=== PATIENT | female | born 1990 | race Caucasian/White ===

== ENCOUNTER 2017-03-06 12:02 | Emergency (ER) | payer OTHER ==
[2017-03-06 12:07] VITALS: O2SAT 100
[2017-03-06] MEDS ORDERED: Sodium Chloride 0.9% 1,000 ML IV ONE ×2 (12:33→12:35)
[2017-03-06] MEDS ORDERED: Sodium Chloride 0.9% 1,000 ML ONE (12:45)
[2017-03-06 13:00] LABS: RBC URINE 10 /hpf (0-3); URINE BACTERIA OCC (<OCC); URINE BILIRUBIN NEGATIVE (NEGATIVE); URINE BLOOD 2+ (NEGATIVE); URINE COLOR Yellow (YELLOW); URINE GLUCOSE (UA) NORMAL (Normal); URINE KETONE NEGATIVE (NEGATIVE); URINE LEUKOCYTE ESTERASE 3+ Leu/uL (Negative); URINE PROTEIN NEGATIVE (NEGATIVE); URINE UROBILINOGEN NORMAL mg/dL (0.2-1.0); WBC URINE 12 /hpf (0-5)
[2017-03-06 13:02] LABS: BASO # 0.1 K/uL (0.0-0.2); BASO % 0.7 % (0.0-2.0); EOS # 0.1 K/uL (0.0-0.7); EOS % 1.5 % (0.0-4.0); HEMATOCRIT 31.1 % (34.0-47.0); LYMPH # 1.5 K/uL (1.0-4.3); LYMPH % 19.5 % (20.0-40.0); MEAN CORPUSCULAR HEMOGLOBIN 28.1 pg (27.0-31.0); MEAN CORPUSCULAR HGB CONC 33.1 g/dL (33.0-37.0); MEAN PLATELET VOLUME 11.7 fL (7.2-11.7); MONO # 0.4 K/uL (0.0-0.8); MONO % 5.2 % (0.0-10.0); RED CELL DISTRIBUTION WIDTH 13.7 % (11.5-14.5); WHITE BLOOD COUNT 7.9 K/uL (4.8-10.8)
[2017-03-06 13:27] LABS: CHLORIDE 101 mmol/L (98-107)
[2017-03-06 13:28] LABS: POTASSIUM 3.8 mmol/L (3.6-5.2); SODIUM 135 mmol/L (132-148)
[2017-03-06 13:30] LABS: ALB/GLOB RATIO 1.1 (1.0-2.1); ALKALINE PHOSPHATASE 53 U/L (38-126); ALT/SGPT 29 U/L (9-52); AST/SGOT 33 U/L (14-36); BILIRUBIN,TOTAL 0.4 mg/dL (0.2-1.3); BLOOD UREA NITROGEN 8 mg/dL (7-17); CARBON DIOXIDE 23 mmol/L (22-30); GFR AFRICAN-AMERICAN > 60; GLUCOSE,RANDOM 78 mg/dL (65-105); TOTAL PROTEIN 7.7 g/dL (6.3-8.3)
[2017-03-06 13:31] LABS: CALCIUM 9.2 mg/dl (8.6-10.4)
--- NOTE | 2017-03-06 13:37 | C.PDOC ---
History Of Present Illness <Cinthya Rodríguez - Last Filed: 03/06/17 15:21> <Shayy Murillo - Last Filed: 03/06/17 15:45> 26 y/o female currently presents to ED with complaints of low abdominal pain, vomiting starting today. Patient reports she had vaginal spotting yesterday that resolved today. Patient states she has not seen anyone for care. No other complaints at this time. LMP 01/17/17 (Cinthya Rodríguez) History Per: Patient History/Exam Limitations: no limitations Onset/Duration Of Symptoms: Days Current Symptoms Are (Timing): Still Present Location Of Pain/Discomfort: Suprapubic Abnormal Vaginal Bleeding: Yes : 2 Para: 1 <Cinthya Rodríguez - Last Filed: 03/06/17 15:21> <Shayy Murillo - Last Filed: 03/06/17 15:45> Time Seen by Provider: 03/06/17 12:23 Chief Complaint (Nursing): Abdominal Pain Past Medical History Reviewed: Historical Data, Nursing Documentation, Vital Signs - Medical History PMH: No Chronic Diseases Surgical History: No Surg Hx Family History: States: No Known Family Hx - Social History Hx Alcohol Use: No Hx Substance Use: No <Cinthya Rodríguez - Last Filed: 03/06/17 15:21> Vital Signs: Last Vital Signs Temp 98.2 F 03/06/17 14:35 Pulse 49 L 03/06/17 14:35 Resp 18 03/06/17 14:35 BP 95/58 L 03/06/17 14:35 Pulse Ox 100 03/06/17 15:22 Review Of Systems Constitutional: Negative for: Fever, Chills Gastrointestinal: Positive for: Vomiting, Abdominal Pain. Negative for: Nausea , Diarrhea Genitourinary: Negative for: Dysuria, Hematuria Musculoskeletal: Negative for: Back Pain Skin: Negative for: Rash <Cinthya Rodríguez Last Filed: 03/06/17 15:21> Physical Exam - Physical Exam Appears: Non-toxic, No Acute Distress Skin: Normal Color, Warm, Dry, No Rash Head: Atraumatic, Normacephalic Oral Mucosa: Moist Neck: Normal ROM, Supple Chest: Symmetrical Cardiovascular: Rhythm Regular Respiratory: Normal Breath Sounds, No Rales, No Rhonchi, No Wheezing Gastrointestinal/Abdominal: Soft, Tenderness (Suprapubic), No Guarding, No Rebound Back: No CVA Tenderness <Cinthya Rodríguez Last Filed: 03/06/17 15:21> ED Course And Treatment - Laboratory Results Result Diagrams: 03/06/17 12:56 03/06/17 12:56 Lab Interpretation: Normal Urine POC: Positive O2 Sat by Pulse Oximetry: 100 (RA) Pulse Ox Interpretation: Normal - CT Scan/US No standard instances Other Rad Studies (CT/US): Read By Radiologist, Radiology Report Reviewed CT/US Interpretation: Findings: Uterus measures approximately 12.2 x 6.3 x 8.2 cm. Anteverted. Cervix length measures approximately 3.2 cm. Bicornuate uterus. Intrauterine gestational sac identified within the right uterine horn and measures approximately 2.7 cm consistent with gestational age 7 weeks 3 days. 3 mm yolk sac. [place]-rump length measures approximately 1.1 cm consistent with gestational age 7 weeks 1 day. heart motion detected measuring approximately 111.2 beats per minute. Left uterine horn endometrium measures approximately 2.8 cm in diameter. The right ovary measures 4.1 x 2.2 x 3.7 cm. The left ovary measures 3.6 x 2.0 x 3.1 cm. Blood flow was demonstrated to both ovaries. Impression: Bicornuate uterus. Within the right uterine horn, there is a live single intrauterine with estimated gestational age 7 weeks 1 day by [place]-rump length calculation. heart rate 111.2 bpm. Endometrium within the left uterine horn measures approximately 2.8 cm in diameter. Advise an anomaly screen at 16-18 weeks gestational age Progress Note: Treated with IVF NSS. On re-evaluation abdomen soft non-tender. Discharge in stable condition. Follow up with [facility] for further evaluation Reassessment Condition: Improved <Cinthya Rodríguez Last Filed: 03/06/17 15:21> - Laboratory Results Result Diagrams: 03/06/17 12:56 03/06/17 12:56 <Shayy Murillo - Last Filed: 03/06/17 15:45> Medical Decision Making <Cinthya Rodríguez Last Filed: 03/06/17 15:21> <Shayy Murillo - Last Filed: 03/06/17 15:45> Medical Decision Making: Plan: Ultrasound (Cinthya Rodríguez) Disposition - Disposition Disposition Time: 15:30 - POA Present On Arrival: None <Cinthya Rodríguez - Last Filed: 03/06/17 15:21> <Shayy Murillo - Last Filed: 03/06/17 15:45> - Disposition Referrals: [facility] [Outside] [facility] [Outside] Disposition: HOME/ ROUTINE Condition: STABLE Additional Instructions: Follow up with [facility] Return to ED if any increase symptoms Prescriptions: Ondansetron ODT [Zofran ODT] 1 odt PO BID PRN #6 odt PRN Reason: Nausea/Vomiting Instructions: Threatened Miscarriage (ED) Forms: [employer] (Turkish) - Clinical Impression Clinical Impression: Threatened - PA / PARCEL CARRIER / Resident Statement MD/DO has reviewed & agrees with the documentation as recorded. - Scribe Statement The provider has reviewed the documentation as recorded by the Scribe <Cinthya Rodríguez - Last Filed: 03/06/17 15:21> <Shayy Murillo - Last Filed: 03/06/17 15:45> - Scribe Statement Pola Medina All medical record entries made by the Scribe were at my direction and personally dictated by me. I have reviewed the chart and agree that the record accurately reflects my personal performance of the history, physical exam, medical decision making, and the department course for this patient. I have also personally directed, reviewed, and agree with the discharge instructions and disposition. (Cinthya Rodríguez)
[2017-03-06 14:39] VITALS: BP 95/58; PULSE 49; RESP 18; TEMP 98.2
== END 2017-03-06 14:48 | disposition home or self-care (01) ==
LOC: C.ER 12:02
DX: O20.0 Threatened abortion (principal); Z3A.01 Less than 8 weeks gestation of pregnancy
CPT/HCPCS: 76801; 80053; 81001; 84702; 84703; 85025; 86850; 86900; 96361; 96374; 99285; J2405; J7040

== ENCOUNTER 2017-03-18 22:50 | Emergency (ER) | payer OTHER ==
[2017-03-18 23:00] VITALS: BP 112/70; PULSE 68; RESP 18; TEMP 98.3; O2SAT 100
[2017-03-18] MEDS ORDERED: Sodium Chloride 0.9% 1,000 ML IV ONE (23:17)
--- NOTE | 2017-03-18 23:25 | C.PDOC ---
History Of Present Illness 26 year old 8 week female, P:2, presents to the ER for a complaint of suprapubic pain and vaginal bleeding. Denies nausea or vomiting.Pt had similiar complaints 2 weeks ago.Had live IUP by US at that time,was sent home with threatened miscarriage instructions Chief Complaint (Nursing): Abdominal Pain History Per: Patient History/Exam Limitations: no limitations Onset/Duration Of Symptoms: Hrs Current Symptoms Are (Timing): Still Present Location Of Pain/Discomfort: Suprapubic Radiation Of Pain To:: None Quality Of Discomfort: Unable To Describe Associated Symptoms: denies: Fever, Chills, Nausea, Vomiting Exacerbating Factors: None Alleviating Factors: None Recent travel outside of the [place]: No Abnormal Vaginal Bleeding: No Past Medical History Reviewed: Historical Data, Nursing Documentation, Vital Signs Vital Signs: Last Vital Signs Temp 98.3 F 03/18/17 22:57 Pulse 68 03/18/17 22:57 Resp 18 03/18/17 22:57 BP 112/70 03/18/17 22:57 Pulse Ox 100 03/19/17 00:48 - Medical History PMH: No Chronic Diseases Surgical History: No Surg Hx Family History: States: Unknown Family Hx - Social History Hx Alcohol Use: No Hx Substance Use: No - Immunization History Hx Tetanus Toxoid Vaccination: No Hx Influenza Vaccination: No Hx Pneumococcal Vaccination: No Review Of Systems Constitutional: Negative for: Fever, Chills Gastrointestinal: Positive for: Abdominal Pain. Negative for: Nausea, Vomiting Genitourinary: Positive for: Vaginal Bleeding Physical Exam - Physical Exam Appears: Non-toxic Skin: Normal Color, Warm, Dry Head: Atraumatic, Normacephalic Eye(s): bilateral: Normal Inspection, EOMI Oral Mucosa: Moist Neck: Normal, Supple Lymphatic: No Adenopathy Chest: Symmetrical, No Tenderness Cardiovascular: Rhythm Regular Respiratory: Normal Breath Sounds, No Rales, No Rhonchi, No Wheezing Gastrointestinal/Abdominal: Bowel Sounds (Active), Soft, Tenderness (Suprapubic) , No Guarding, No Rebound Pulses: Left Radial: Normal, Right Radial: Normal Neurological/Psych: Oriented x3, Normal Speech, Normal Cognition, Normal Motor, Normal Sensation ED Course And Treatment - Laboratory Results Result Diagrams: 03/18/17 23:34 03/18/17 23:34 O2 Sat by Pulse Oximetry: 100 (Room air) Pulse Ox Interpretation: Normal Progress Note: Previous records reviewed, patient was seen on 03/06 for vaginal spotting and had an US that showed an IUP at 7 weeks 3 days with positive FHR at 111. Medical Decision Making Medical Decision Making: Impression: Threatened miscarriage Plan: * Blood work * Urinalysis * IV fluids * Transvaginal US Disposition - Disposition Referrals: Non [facility] Provider, [Primary Care Provider] - Disposition: HOME/ ROUTINE Disposition Time: 00:46 Condition: FAIR Additional Instructions: pelvic rest,no sexual activity,bedrest,no douching,3 days bedrest Forms: [employer] (Puerto Rican) - Clinical Impression Clinical Impression: Threatened miscarriage in early - Scribe Statement The provider has reviewed the documentation as recorded by the Scribe Olivier Pleitez All medical record entries made by the Scribe were at my direction and personally dictated by me. I have reviewed the chart and agree that the record accurately reflects my personal performance of the history, physical exam, medical decision making, and the department course for this patient. I have also personally directed, reviewed, and agree with the discharge instructions and disposition.
[2017-03-18 23:39] LABS: BASO % 0.6 % (0.0-2.0); EOS # 0.1 K/uL (0.0-0.7); EOS % 1.9 % (0.0-4.0); HEMATOCRIT 32.8 % (34.0-47.0); LYMPH # 1.7 K/uL (1.0-4.3); LYMPH % 23.8 % (20.0-40.0); MEAN CELL VOLUME 84.4 fL (81.0-99.0); MEAN CORPUSCULAR HEMOGLOBIN 28.2 pg (27.0-31.0); MEAN CORPUSCULAR HGB CONC 33.4 g/dL (33.0-37.0); MEAN PLATELET VOLUME 11.8 fL (7.2-11.7); MONO # 0.3 K/uL (0.0-0.8); MONO % 4.1 % (0.0-10.0); RED CELL DISTRIBUTION WIDTH 13.8 % (11.5-14.5); WHITE BLOOD COUNT 7.2 K/uL (4.8-10.8)
[2017-03-18 23:46] LABS: CHLORIDE 100 mmol/L (98-107); POTASSIUM 3.8 mmol/L (3.6-5.2); SODIUM 133 mmol/L (132-148)
[2017-03-18 23:49] LABS: ALKALINE PHOSPHATASE 64 U/L (38-126); ALT/SGPT 43 U/L (9-52); AST/SGOT 21 U/L (14-36); BILIRUBIN,TOTAL 0.3 mg/dL (0.2-1.3); BLOOD UREA NITROGEN 6 mg/dL (7-17); CARBON DIOXIDE 24 mmol/L (22-30); GFR AFRICAN-AMERICAN > 60; GLUCOSE,RANDOM 82 mg/dL (65-105); TOTAL PROTEIN 8.4 g/dL (6.3-8.3)
[2017-03-18 23:50] LABS: CALCIUM 9.6 mg/dl (8.6-10.4)
[2017-03-18 23:52] LABS: RBC URINE 56 /hpf (0-3); URINE BACTERIA FEW (<OCC); URINE BILIRUBIN NEGATIVE (NEGATIVE); URINE BLOOD 2+ (NEGATIVE); URINE COLOR Red (YELLOW); URINE GLUCOSE (UA) NORMAL (Normal); URINE KETONE NEGATIVE (NEGATIVE); URINE LEUKOCYTE ESTERASE 3+ Leu/uL (Negative); URINE PROTEIN 2+ mg/dL (NEGATIVE); URINE UROBILINOGEN NORMAL mg/dL (0.2-1.0); WBC URINE 32 /hpf (0-5)
--- NOTE | 2017-03-19 01:02 | US ---
EXAM: US First Trimester, Transabdominal CLINICAL HISTORY: 26 years old, female; Signs and symptoms; Lmp or gestational age (in weeks): 8-24-17; Other: Bleeding; ; Patient HX: Beta [id number]; Additional info: R/O miscarriage TECHNIQUE: Real-time transabdominal obstetrical ultrasound of the maternal pelvis and a first trimester with image documentation. COMPARISON: US - 1ST TRIMESTER SINGLE 2017-03-06 13:10 FINDINGS: Gestation: Single live intrauterine gestation within RIGHT horn. heart rate of 143 per minute. [place]-rump length of 2.08 cm, correlating with gestational age of 8 weeks 5 days. Uterus/cervix: Bicornuate uterus. 4.5 x 1.4 x 2.7 cm collection along gestational sac. No cervical dilatation or effacement. Endometrium: 3.1 cm in thickness within LEFT horn. Ovaries: RIGHT ovary: Not visualized. LEFT ovary: Normal. No adnexal masses. Free fluid: No significant free fluid. IMPRESSION: 1. Single live intrauterine gestation. 2. Subchorionic hemorrhage. 3. Incidental/non-acute findings are described above.
== END 2017-03-19 01:05 | disposition home or self-care (01) ==
LOC: SUPCPDRO 22:50 → C.ER 22:50
DX: O20.0 Threatened abortion (principal); Z3A.08 8 weeks gestation of pregnancy
CPT/HCPCS: 76801; 80053; 81001; 84702; 84703; 85025; 86850; 86900; 99285; J7040